=== PATIENT | male | born 1990 | race Caucasian/White ===

== ENCOUNTER 2019-04-23 08:28 | Emergency (ER) | payer MEDICAID ==
[2019-04-23 09:42] LABS: ABS Basophils 0.1 10^3/ul (0-0.2); ABS Eosinophils 0.2 10^3/ul (0-0.6); ABS Lymphocytes 3.4 10^3/ul (1.0-4.8); ABS Monocytes 0.7 10^3/ul (0-0.8); ABS Neutrophils 5.9 10^3/ul (1.5-7.7); Eosinophil % 1.7 %; Hematocrit 48 % (42-52); Hemoglobin 17.1 g/dL (14.0-18.0); Lymphocyte % 33.4 %; Mean Corpuscular HGB Conc 36 g/dL (31-36); Mean Corpuscular Hemoglobin 33 pg (27-31); Mean Corpuscular Volume 92 fL (80-94); Mean Platelet Volume 7.7 fL (7.4-10.4); Platelet Count 270 10^3/uL (150-450); Red Blood Count 5.22 10^6 /uL (4.18-5.48); Red Cell Distribution Width 13 % (10-15); White Blood Count 10.3 10^3/uL (3.5-10.8)
[2019-04-23 10:00] LABS: Albumin 4.4 g/dL (3.2-5.2); Albumin/Globulin Ratio 1.4 (1-3); BUN/Creatinine Ratio 23.7 (8-20); C Reactive Protein 7.52 mg/L (<8.01); Calcium 9.4 mg/dL (8.6-10.3); EGFR African American 146.7 (>60); EGFR Non-African American 121.3 (>60); Globulin 3.1 g/dL (2-4); Potassium 4.2 mmol/L (3.5-5.0); Total Bilirubin 0.4 mg/dL (0.2-1.0); Total Protein 7.5 g/dL (6.4-8.9)
--- NOTE | 2019-04-23 10:19 | ED ---
GI/ HPI - HPI Summary HPI Summary: This patient is a 28 year old male presenting to [facility] with a chief complaint of right testicular pain yesterday morning. He states his right testicle is swollen to the size of his fist. He denies dysuria, hematuria, abdominal pain, or fever. He denies any PMHx. He states it is atraumatic and he has never experienced this before. - History of Current Complaint Chief Complaint: EDUrogenitalProblems Time Seen by Provider: 04/23/19 10:08 Stated Complaint: RIGHT TESTICAL IS SWOLLEN PER PT Hx Obtained From: Patient Onset/Duration: Started Days Ago Pain Intensity: 0 Additional Locations for Males: Testicles - Allergy/Home Medications Allergies/Adverse Reactions: Allergies Allergy/AdvReac Type Severity Reaction Status Date / Time No Known Allergies Allergy Verified 04/23/19 08:35 PMH/Surg Hx/FS Hx/Imm Hx Endocrine/Hematology History: Denies: Hx Diabetes Cardiovascular History: Denies: Hx Coronary Artery Disease - Immunization History Date of Tetanus Vaccine: Up to Date Date of Influenza Vaccine: None Infectious Disease History: No Infectious Disease History: Denies: Traveled Outside the [place] in Last 30 Days - Family History Known Family History: Negative: Seizure Disorder - Social History Alcohol Use: Rare Alcohol Amount: every other day one drink Substance Use Type: Reports: None Smoking Status (MU): Never Smoked Tobacco Review of Systems Negative: Fever Negative: Abdominal Pain Positive: pain - Testicular, and swelling. Negative: dysuria, hematuria All Other Systems Reviewed And Are Negative: Yes Physical Exam - Summary Physical Exam Summary: Constitutional: Well-developed, Well-nourished, Alert. (-) Distressed Skin: Warm, Dry HENT: Normocephalic; Atraumatic Eyes: Conjunctiva normal Neck: Musculoskeletal ROM normal neck. (-) JVD, (-) Stridor, (-) Tracheal deviation Cardio: Rhythm regular, rate normal, Heart sounds normal; Intact distal pulses; Radial pulses are 2+ and symmetric. (-) Murmur Pulmonary/Chest wall: Effort normal. (-) Respiratory distress, (-) Wheezes, (-) Rales Abd: Soft, (-) tenderness, (-) Distension, (-) Guarding, (-) Rebound Musculoskeletal: (-) Edema Lymph: (-) Cervical adenopathy Neuro: Alert, Oriented x3 Psych: Mood and affect Normal : Right hemiscrotum swollen, tender to palpation, no erythema. Triage Information Reviewed: Yes Vital Signs On Initial Exam: Initial Vitals Temp Pulse Resp BP Pulse Ox 97.5 F 96 15 133/81 97 04/23/19 08:34 04/23/19 08:34 04/23/19 08:34 04/23/19 08:34 04/23/19 08:34 Vital Signs Reviewed: Yes Procedures - Sedation Patient Received Moderate/Deep Sedation with Procedure: No Diagnostics - Vital Signs Vital Signs Temp Pulse Resp BP Pulse Ox 04/23/19 08:34 97.5 F 96 15 133/81 97 - Laboratory Lab Results: Lab Results 04/23/19 04/23/19 04/23/19 Range/Units 09:29 09:29 09:29 WBC 10.3 (3.5-10.8) 10^3/uL RBC 5.22 (4.18-5.48) 10^6 /uL Hgb 17.1 (14.0-18.0) g/dL Hct 48 (42-52) % MCV 92 (80-94) fL MCH 33 H (27-31) pg MCHC 36 (31-36) g/dL RDW 13 (10-15) % Plt Count 270 (150-450) 10^3/uL MPV 7.7 (7.4-10.4) fL Neut % (Auto) 57.3 % Lymph % (Auto) 33.4 % [place] % (Auto) 6.6 % Eos % (Auto) 1.7 % Baso % (Auto) 1.0 % Absolute Neuts (auto) 5.9 (1.5-7.7) 10^3/ul Absolute Lymphs (auto) 3.4 (1.0-4.8) 10^3/ul Absolute Monos (auto) 0.7 (0-0.8) 10^3/ul Absolute Eos (auto) 0.2 (0-0.6) 10^3/ul Absolute Basos (auto) 0.1 (0-0.2) 10^3/ul Absolute Nucleated RBC 0.0 10^3/ul Nucleated RBC % 0.0 Sodium 138 (135-145) mmol/L Potassium 4.2 (3.5-5.0) mmol/L Chloride 106 (101-111) mmol/L Carbon Dioxide 25 (22-32) mmol/L Anion Gap 7 (2-11) mmol/L BUN 18 (6-24) mg/dL Creatinine 0.76 (0.67-1.17) mg/dL Est GFR ( Amer) 146.7 (>60) Est GFR (Non-Af Amer) 121.3 (>60) BUN/Creatinine Ratio 23.7 H (8-20) Glucose 109 H (70-100) mg/dL Lactic Acid 1.5 (0.5-2.0) mmol/L Calcium 9.4 (8.6-10.3) mg/dL Total Bilirubin 0.40 (0.2-1.0) mg/dL AST 25 (13-39) U/L ALT 48 (7-52) U/L Alkaline Phosphatase 97 (34-104) U/L C-Reactive Protein 7.52 (<8.01) mg/L Total Protein 7.5 (6.4-8.9) g/dL Albumin 4.4 (3.2-5.2) g/dL Globulin 3.1 (2-4) g/dL Albumin/Globulin Ratio 1.4 (1-3) Result Diagrams: 04/23/19 09:29 04/23/19 09:29 Lab Statement: Any lab studies that have been ordered have been reviewed, and results considered in the medical decision making process. - Ultrasound No standard instances Ultrasound Interpretation Completed By: Radiologist Summary of Ultrasound Findings: 1. Bilateral hydroceles. 2. Testicular doppler signal detected bilaterally. ED Provider has reviewed this report. GIGU Course/Dx - Course Course Of Treatment: This patient is a 28 year old male presenting to [facility] with a chief complaint of right testicular pain. Physical exam revealed right hemiscrotum swelling. Testicular US reveals 1. Bilateral hydroceles. 2. Testicular doppler signal detected bilaterally. - Diagnoses Provider Diagnoses: Hydrocele Discharge ED - Sign-Out/Discharge Documenting (check all that apply): Patient Departure - Discharge - Discharge Plan Condition: Stable Disposition: HOME Patient Education Materials: Testicle Pain (ED) Forms: *Work Release Referrals: Tex Herzog MD [Medical Doctor] - 2 Days Additional Instructions: Return to ED with any new or worsening symptoms. - Billing Disposition and Condition Condition: STABLE Disposition: Home - Attestation Statements Document Initiated by Scribe: Yes Documenting Scribe: Yasmany Jay Provider For Whom Scribe is Documenting (Include Credential): Femi Moura DO Scribe Attestation: IYasmany, surendraibed for Femi Moura DO on 04/23/19 at 1141. Scribe Documentation Reviewed: Yes Provider Attestation: The documentation as recorded by the Yasmany mccall accurately reflects the service I personally performed and the decisions made by Femi anguiano DO Status of Scribe Document: Viewed
[2019-04-23 11:07] LABS: Urine Appearance Clear; Urine Bilirubin Negative (Negative); Urine Blood Negative (Negative); Urine Color Straw; Urine Glucose Negative (Negative); Urine Ketones Negative (Negative); Urine Nitrite Negative (Negative); Urine Protein Negative (Negative); Urine Specific Gravity 1.008 (1.010-1.030); Urine Urobilinogen Negative (Negative)
[2019-04-23 11:30] VITALS: BP 133/92
== END 2019-04-23 11:29 | disposition home or self-care (01) ==
LOC: ED 08:28
DX: N43.3 Hydrocele, unspecified (principal)
CPT/HCPCS: 36415; 76870; 80053; 81003; 83605; 85025; 86140; 99282